=== PATIENT | female | born 1990 | race Caucasian/White ===

== ENCOUNTER 2018-12-12 03:40 | Inpatient (IN) | payer MEDICAID ==
[~2018-12-12] VITALS: Ht 160 cm; Wt 110.2 kg
[2018-12-12 04:01] VITALS: Ht 160 cm; Wt 110.2 kg
[2018-12-12 04:02] VITALS: BP 117/69; PULSE 96; RESP 18
[2018-12-12] MEDS ORDERED: PREN-6 PO (04:29)
[2018-12-12] MEDS ORDERED: MISOPROSTOL 200 MCG TAB PR PRN ×2 (05:00→23:30)
[2018-12-12] MEDS ORDERED: BUTORPHANOL 2 MG INJ IV PRN (05:00)
[2018-12-12] MEDS ORDERED: OXYTOCIN 30 UNITS/LR 500 ML IV PRN ×2 (05:00→23:30)
[2018-12-12] MEDS ORDERED: OXYTOCIN 30 UNITS/LR 500 ML IV SCH ×3 (05:00→09:30)
[2018-12-12] MEDS ORDERED: CARBOPROST 250 MCG INJ IM PRN ×2 (05:00→23:30)
[2018-12-12] MEDS ORDERED: METHYLERGONOVINE 0.2 MG INJ IM PRN ×2 (05:00→23:30)
[2018-12-12] MEDS ORDERED: LIDOCAINE 1% (MPF) 30 ML INJ INJ PRN (05:00)
[2018-12-12] MEDS: LACTATED RINGER'S 1,000 ML IV SCH ×4 (05:54→12:18)
[2018-12-12] MEDS ORDERED: MINERAL OIL LIGHT 10 ML VIAL ONE (06:19)
[2018-12-12] MEDS ORDERED: MINERAL OIL LIGHT 10 ML VIAL TOP PRN (06:30)
--- NOTE | 2018-12-12 09:58 | PREAC ---
Date/Time of Note Date/Time of Note DATE: 12/12/18 TIME: 09:57 Anesthesia Eval and Record Evaluation Time Pre-Procedure Interview DATE: 12/12/18 TIME: 09:57 Age 28 Sex female NPO: 8 hrs Preoperative diagnosis Planned procedure labor epidural Past Medical History Past Medical History: Includes GI: Morbid obesity Surgery & Anesthesia Issues No known issue Meds Anticoagulation: No Beta Monica within 24 hr: No Reason Beta Monica not given: Pt. not on B-Monica Reported Medications Vits #93-Iron Fum-FA ( Formula) 1 Each Tablet, 1 TAB PO DAILY, TAB 12/12/18 Current Medications Lactated Ringer's 1,000 ml @ 125 mls/hr Q8H IV Last administered on 12/12/18at 09:42; Admin Dose 125 MLS/HR; Start 12/12/18 at 04:43 Butorphanol Tartrate (Stadol) 2 mg Q2H PRN IV PAIN; Start 12/12/18 at 05:00 Lidocaine (Xylocaine 1% (Mpf)) 30 ml ONCE PRN INJ EPISIOTOMY; Start 12/12/18 at 05:00 Oxytocin/Lactated Ringer's 500 ml @ 500 mls/hr ONCE POST IV ; Start 12/12/18 at 05:00 Oxytocin/Lactated Ringer's 500 ml @ 125 mls/hr POST IV ; Start 12/12/18 at 05:00 Oxytocin/Lactated Ringer's 500 ml @ 0 mls/hr ONCE PRN IV VAGINAL BLEEDING; Start 12/12/18 at 05:00 Methylergonovine Maleate (Methergine) 0.2 mg ONCE PRN IM VAGINAL BLEEDING; Start 12/12/18 at 05:00 Carboprost Tromethamine (Hemabate) 250 mcg ONCE PRN IM VAGINAL BLEEDING; Start 12/12/18 at 05:00 Misoprostol (Cytotec) 1,000 mcg ONCE PRN UT VAGINAL BLEEDING; Start 12/12/18 at 05:00 Mineral Oil (Muri-Lube) PRN PRN TOP vaginal delivery; Start 12/12/18 at 06:30 Oxytocin/Lactated Ringer's 500 ml @ 0 mls/hr Q0M IV Last administered on 12/12/18at 09:42; Admin Dose 1 MLS/HR; Start 12/12/18 at 09:30 Meds reviewed: Yes Allergies Coded Allergies: No Known Allergy (Unverified , 12/12/18) Allergies Reviewed: Yes Labs/Studies Labs Reviewed: Reviewed by anesthesiologist Result Diagram: 12/12/18 0500 Laboratory Tests 12/12/18 05:00 Blood Bank Test 12/12/18 05:00 Antibody Screen NEGATIVE Blood Type O POSITIVE Rh Immune Globulin Candidate NO test: Positive Pre-procedure Exam Last vitals Vital Signs Date Temp Pulse Resp B/P (MAP) Pulse Ox O2 O2 Flow FiO2 Time Delivery Rate 12/12/18 98.4 96 18 117/69 Room Air 04:02 (85) Airway: Adequate mouth opening, Adequate thyromental dist Mallampati: Mallampati II Teeth: Normal Lung: Normal Heart: Normal ASA Physical Status ASA physical status: 2 Emergency: None Planned Anesthetic Neuraxial: Epidural Pre-operative Attestations Prior to commencing anesthesia and surgery, the patient was re-evaluated, there was verification of: *The patient's identity *The results of appropriate recent lab work and preoperative vital signs *The above evaluation not changing prior to induction *Anesthetic plan, risk benefits, alternative and complications discussed with patient/family; questions answered; patient/family understands, accepts and wishes to proceed. DEDRA SAEED Dec 12, 2018 09:58
[2018-12-12] MEDS ORDERED: KETOROLAC 30 MG INJ IV PRN (10:00)
[2018-12-12] MEDS ORDERED: DIPHENHYDRAMINE 50 MG INJ IV PRN (10:00)
[2018-12-12] MEDS ORDERED: FENTAnyl 2MCG/ML-ROPIV 0.2% 100 ML BAG EPI SCH (10:00)
[2018-12-12] MEDS ORDERED: ONDANSETRON 4 MG INJ IV PRN (10:00)
[2018-12-12] MEDS ORDERED: HYDROmorphONE 0.5 MG/0.5 ML SYG IV PRN ×2 (10:00)
[2018-12-12] MEDS ORDERED: NALOXONE (0.4 MG/ML) INJ IV PRN (10:00)
--- NOTE | 2018-12-12 12:10 | HP ---
Date/Time of Note Date/Time of Note DATE: 12/12/18 TIME: 12:02 OB - History Hx of Present Free Text/Dictation 12/12/2018 : 3 Para: 1 Spontaneous : 0 Care: Limited Care Ultrasounds: Other (Maternal obesity, spontaneous rupture membrane at 38 weeks and 4 days today) Obstetrical Complications: Other Other Concerns: 28-year-old with IUP at 38 week and 4 days, care at [facility], presented with complaint of LOF today at 3 : 00 am, She was noted to be in active labor when arrived. she was about 5/70/-3. Vertex GBS Negative. Reports history of PPH in her prior in 2011 in [facility], Underwent blood transfusion. Past Family/Social History * Past Medical, Surgical, Family and Obstetric Histories reviewed from chart. Blood Type: O+ Rubella: immune RPR/VDRL: Negative GBS Status: Negative HBsAG: Negative OB Admission Exam Vital Signs Vital Signs Vital Signs Date Temp Pulse Resp B/P (MAP) Pulse Ox O2 O2 Flow FiO2 Time Delivery Rate 12/12/18 98.4 96 18 117/69 Room Air 04:02 (85) Physical Exam HEENT: WNL Lungs: Clear Abdomen: WNL Extremities: Normal Reflexes: Normal Cervical Dilatation: 5cm Effacement: 75% Station: -3 Membranes: Ruptured Amniotic Fluid: Clear Heart Rate: 130's Decelerations: No Decelerations Contractions on Admission: < 5 Minutes Apart Intensity: Moderate Last 72 hours Lab Results CBC & BMP 12/12/18 05:00 OB Assessment/Plan Reason for admission: active labor Other Assessment: IUP at 38 weeks and 4 days SROM GBS negative Protracted active labor Start pitocin Anticipate Bleeding precaution ZION EBLTRE MD Dec 12, 2018 12:10
--- NOTE | 2018-12-12 12:41 | PAC ---
Date/Time of Note Date/Time of Note DATE: 12/12/18 TIME: 12:41 Post-Anesthesia Notes Post-Anesthesia Note Last documented vital signs Vital Signs Date Temp Pulse Resp B/P (MAP) Pulse Ox O2 O2 Flow FiO2 Time Delivery Rate 12/12/18 98.4 96 18 117/69 Room Air 04:02 (85) Activity: WNL Respiratory function: WNL Cardiovascular function: WNL Mental status: Baseline Pain reasonably controlled: Yes Hydration appropriate: Yes Nausea/Vomiting absent: Yes DEDRA SAEED Dec 12, 2018 12:41
[2018-12-12] MEDS ORDERED: ACETAMINOPHEN 500 MG TAB PO STA (22:04)
--- NOTE | 2018-12-12 22:05 | LDN ---
Date/Time of Note Date/Time of Note DATE: 12/12/18 TIME: 22:00 Delivery Summary Weeks of Gestation 38w4d Placenta Delivered: Spontaneously Meconium: none Episiotomy: No Perineal laceration: 1 Laceration repair: 000 ch gut Anesthesia type: Epidural Estimated blood loss: 100 Sponge & Needle done & correct: Yes All needle counts correct: Yes Any foreign bodies felt in the: No Infant Delivery Information Sex Sex: female Apgars 1 Minute: 8 5 Minute: 9 Suctioning Nose & mouth suctioned at mikayla: Yes Delee suction performed: No Umbilical Cord Umbilical cord with: 3 Vessels Cord presentations: no nuchal cord Cord Blood was obtained: Yes Mother & Baby Disposition Disposition Mom & Baby to Maternity; Good: Yes Mom transferred to: Other Baby to NICU: No () WILLY SWAIN MD Dec 12, 2018 22:05
[2018-12-12 23:20] VITALS: BP 114/58; PULSE 80; RESP 18
[2018-12-12] MEDS ORDERED: LANOLIN HPA 1 PKT TOP PRN (23:30)
[2018-12-12] MEDS ORDERED: WITCH HAZEL/GLYCERIN PAD PR PRN (23:30)
[2018-12-12] MEDS ORDERED: OXYCODONE/ASPIRIN (4.88/325) TAB PO PRN ×2 (23:30)
[2018-12-12] MEDS ORDERED: BENZOCAINE 20% 56 ML SPRAY TOP PRN (23:30)
[2018-12-12] MEDS ORDERED: ZOLPIDEM 5 MG TAB PO PRN (23:30)
[2018-12-13 03:35] VITALS: BP 104/55; PULSE 77; RESP 18
[2018-12-13] MEDS: IBUPROFEN 600 MG TAB PO SCH ×5 (05:29→23:35)
[2018-12-13 08:30] VITALS: BP 114/59; PULSE 96; RESP 16
[2018-12-13] MEDS ORDERED: [UNRECOGNIZED DRUG - OTHER] PO SCH (09:00)
[2018-12-13] MEDS: PRENATAL VITAMIN PO SCH (09:02)
[2018-12-13] MEDS: SENNA/DOCUSATE NA (8.6MG/50MG) TAB PO SCH ×2 (09:02→21:33)
[2018-12-13 12:26] VITALS: BP 108/60; PULSE 80; RESP 18
[2018-12-13 16:58] VITALS: BP 94/54; PULSE 82; RESP 17
[2018-12-13 19:45] VITALS: BP 120/57; PULSE 85; RESP 20
--- NOTE | 2018-12-14 01:14 | PN ---
Date/Time of Note Date/Time of Note DATE: 12/14/18 TIME: 01:13 OB Subjective Subjective Subjective Late entry note. Patient seen on 12/13/2018 at 1830 PPD# 1 Patient is doing well. She denies nausea, vomiting, shortness of breath, chest pain, headache. She has been ambulating without difficulty, tolerating regular diet. Pain is well controlled on current medications OB Objective Objective Objective VS - Last 72 Hours, by Label Date Temp Pulse Resp B/P (MAP) Pulse Ox O2 O2 Flow FiO2 Time Delivery Rate 12/13/18 98.3 85 20 120/57 Room Air 19:45 (78) 12/13/18 98.4 82 17 94/54 (67) Room Air 16:58 12/13/18 99.4 80 18 108/60 Room Air 12:26 (76) 12/13/18 98.1 96 16 114/59 Room Air 08:30 (77) 12/13/18 98.9 77 18 104/55 Room Air 03:35 (71) 12/12/18 99.5 80 18 114/58 Room Air 23:20 (76) 12/12/18 98.7 22:14 12/12/18 98.4 96 18 117/69 Room Air 04:02 (85) General: AAO X 3, comfortable, NAD, appropriate mood and affect. ABD: +BS. Soft, non-tender. Uterus 2 cm below umbilicus Flank: No CVA tenderness (B/L) LE: Mild edema. No clubbing, cyanosis, thigh or calf tenderness (B/L). Homans 'sign is negative OB Assessment/Plan Other plan: 28 years old s/p normal vaginal delivery at 38 weeks and 4 days. PPD#1 - AF, VSS - Baby is doing well, at bed side. She is bonding well - Contraception methods with R/B/A/FR discussed - Continue care - Discharge home tomorrow - Rx and instruction given - Follow up in 2 and 6 weeks at clinic WENDY NEWBY Dec 14, 2018 01:14
--- NOTE | 2018-12-14 01:16 | DS ---
Date/Time of Note Date/Time of Note DATE: 12/14/18 TIME: 01:15 Obstetrical Discharge Record Final Diagnosis Final Diagnosis: Term delivered Other Final Diagnosis 28 years old s/p normal vaginal delivery at 38 weeks and 4 days. PPD#2. Her course was unremarkable. She is ambulating and tolerating regular diet. She is voiding without difficulty. Pain is controlled on current medication - AF, VSS - Baby is doing well, at bed side. She is bonding well - Contraception methods with R/B/A/FR discussed - Continue care - Discharge home - Rx and instruction given - Follow up in 2 and 6 weeks at clinic Vaginal Delivery Obstetrical Delivery: Spontaneous Condition on Discharge Physical Assessment Last Vitals: Vital Signs Date Temp Pulse Resp B/P (MAP) Pulse Ox O2 O2 Flow FiO2 Time Delivery Rate 12/13/18 98.3 85 20 120/57 Room Air 19:45 (78) Voiding: Yes Bowel Movement: Yes Breast: Soft, non-tender Fundus: Firm Calf Tenderness: No Patient Condition: Stable WENDY NEWBY Dec 14, 2018 01:16
[2018-12-14 03:30] VITALS: BP 109/53; PULSE 81; RESP 18
[2018-12-14] MEDS: IBUPROFEN 600 MG TAB PO SCH ×2 (05:23→11:53)
[2018-12-14 08:45] VITALS: BP 119/65; PULSE 84; RESP 18
[2018-12-14] MEDS ORDERED: DIPHTH/TET/ACEL PERTUSS (ADULT) 0.5 ML VIAL IM* ONE (09:00)
[2018-12-14] MEDS: PRENATAL VITAMIN PO SCH (09:02)
[2018-12-14] MEDS: SENNA/DOCUSATE NA (8.6MG/50MG) TAB PO SCH (09:02)
== END 2018-12-14 17:15 | disposition home or self-care (01) | DRG 807 ==
LOC: L-D 03:40 → OBT 03:40 → L-D 04:53 → OBT 04:53 → PP1 23:12
PROVIDERS: ADMIT Obstetrics & Gynecology; ATTEND Obstetrics & Gynecology
PROC: 10E0XZZ Delivery of Products of Conception, External Approach (ICD-10-PCS; principal; 2018-12-12)
PROC: 0HQ9XZZ Repair Perineum Skin, External Approach (ICD-10-PCS; 2018-12-12)
DX: O99.214 Obesity complicating childbirth (principal); Z37.0 Single live birth; E66.01 Morbid (severe) obesity due to excess calories; O42.02 Full-term premature rupture of membranes, onset of labor within 24 hours of rupture; O63.9 Long labor, unspecified; O70.9 Perineal laceration during delivery, unspecified; Z3A.38 38 weeks gestation of pregnancy; Z23 Encounter for immunization
CPT/HCPCS: 62319; 76815; 81001; 84112; 85025; 85610; 85730; 86592; 86850; 86900; 86901; 87340; 90686; 90715; G0463; J2590; J3010; J7120